=== PATIENT | female | born 1985 | race Caucasian/White ===

== ENCOUNTER → 2017-04-25 | Outpatient (REF) | payer OTHER | LOC: M LAB REF 18:50 | PROVIDERS: ATTEND Physician Assistant | DX: J03.90 Acute tonsillitis, unspecified (principal) ==

== ENCOUNTER 2022-02-03 12:22 | Emergency (ER) | payer BC, OTHER ==
[~2022-02-03] VITALS: Ht 165.1 cm; Wt 63.4 kg
[2022-02-03 12:23] VITALS: BP 122/89
[2022-02-03] MEDS ORDERED: CLAR10CA3 PO (12:40)
[2022-02-03] MEDS ORDERED: SERT50TA29 (12:40)
== END 2022-02-03 15:09 | disposition left against medical advice (07) ==
LOC: M ED 12:22
DX: Z53.21 Procedure and treatment not carried out due to patient leaving prior to being seen by health care provider (principal)